=== PATIENT | female | born 1965 | race African-American/Black ===

== ENCOUNTER 2023-04-13 09:25 | Emergency (ER) | payer OTHER ==
[~2023-04-13] VITALS: Ht 167.6 cm; Wt 63.5 kg
[2023-04-13] MEDS ORDERED: CARI350T PO (10:16)
[2023-04-13 10:58] VITALS: BP 136/68; TEMP 98.1; O2SAT 97
== END 2023-04-13 10:59 | disposition home or self-care (01) ==
LOC: ER 09:25
DX: M79.10 Myalgia, unspecified site (principal); Z88.0 Allergy status to penicillin; Z79.899 Other long term (current) drug therapy
CPT/HCPCS: A4663